=== PATIENT | male | born 1990 | race Two or more races ===

== ENCOUNTER 2025-03-24 17:59 | Emergency (ER) | payer OTHER, SELFPAY ==
[2025-03-24 17:59] VITALS: BMI 25.0
[2025-03-24 18:46] VITALS: BP 150/88; PULSE 76; RESP 18; TEMP 36.7; O2SAT 99
[2025-03-24 19:43] VITALS: BP 128/82; PULSE 59; RESP 16; TEMP 37.1; O2SAT 98
--- NOTE | 2025-03-24 19:51 | XR_ITS ---
Examination: CT brain head without contrast. 2-D sagittal coronal reconstructions Date and time of exam:March 24, 20252008 hrs. Indications: Injury to the head today followed by head pain dizziness CTDI: vol (mGy):51.2 DLP: (mGycm):1007 Technique: Multiple CT axial sections of the brain have been obtained, 5 mm slice thickness. Contrast has not been administered. 2-D sagittal, coronal reconstructions have been obtained Low dose protocols were performed. One or more of the following dose reduction techniques were used; automated exposure control, adjustment of the mA and/or KV according to patient size, use of iterative reconstruction technique. Findings: No significant ventricular enlargement. 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 No mass effect or midline shift Basal cisterns are not remarkable. Fourth ventricle is midline. Cranial vault intact. 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
--- NOTE | 2025-03-24 19:52 | PD.EDHEAD ---
ED Head Injury RME/HPI General Chief complaint: Head Injury Stated complaint: HIT IN HEAD WITH LADDER AT 1400, NO LOC, WORK COMP Time Seen by Provider: 03/24/25 19:50 Arrival date/time: 03/24/25 17:59 34M with no significant PMH presents to ED with head pain and some L eye blurry vision after he got hit in the head by a ladder at work today. Patient denies LOC, AMS, seizures, and N/V. Limitations: no limitations Related Data Previous Rx's ?Medication ?Instructions ?Recorded meloxicam 7.5 mg tablet 7.5 mg PO QDAY #10 tabs 07/27/23 Allergies Allergy/AdvReac Type Severity Reaction Status Date / Time No Known Allergies Allergy Verified 03/24/25 18:02 Review of Systems Review of Systems Systems Reviewed: All systems reviewed, normal except as documented Constitutional Constitutional: Reports system reviewed and no additional complaints, except as documented, Reports as per HPI, Denies fever(s) and Reports headache(s) (pain) Eyes Eyes: Reports as per HPI and Reports blurry vision ENT Ears, Nose, Mouth, and Throat: Denies disequilibrium and Reports headache(s) (pain) Cardiovascular Cardiovascular: Reports system reviewed and no additional complaints, except as documented, Denies chest pain and Denies dyspnea Respiratory Respiratory: Reports system reviewed and no additional complaints, except as documented, Denies cough and Denies dyspnea Gastrointestinal Gastrointestinal: Reports system reviewed and no additional complaints, except as documented, Denies abdominal pain, Denies nausea and Denies vomiting Neurologic Neurologic: Reports system reviewed and no additional complaints, except as documented, Denies confusion, Denies disequilibrium and Reports headache(s) (pain) Psychiatric Psychiatric: Denies confusion Past Medical History Social History SMOKING STATUS: Never smoker ED Exam General Limitations: Present no limitations General appearance: Present alert and in no apparent distress Head Head exam: Present atraumatic Eye Eye exam: Present normal appearance, PERRL and EOMI ENT ENT exam: Present normal exam, normal oropharynx and mucous membranes moist Neck Neck exam: Present normal inspection, full ROM and trachea midline Chest Chest inspection: Present normal inspection and symmetric chest wall rise Respiratory Respiratory exam: Present normal lung sounds bilaterally Cardiovascular Cardiovascular exam: Present regular rate, normal rhythm and normal heart sounds Abdominal Exam Abdominal exam: Present soft and normal bowel sounds Extremities Exam Extremities exam: Present normal inspection and full ROM Back Exam Back exam: Present normal inspection and full ROM Neurological Exam Neurological exam: Present alert, oriented X3 and CN II-XII intact Psychiatric Psychiatric exam: Present normal affect and normal mood Skin Skin exam: Present warm, dry, intact and normal color Course Quality Measures none Orders Category Date Time Status CT head/brain wo con Stat Exams 03/24/25 19:51 Completed Vital Signs Vital signs: Vital Signs Temperature 98.0 F 03/24/25 18:46 Pulse Rate 76 03/24/25 18:46 Respiratory Rate 18 03/24/25 18:46 Blood Pressure 150/88 H 03/24/25 18:46 Pulse Oximetry (%) 99 03/24/25 18:46 Oxygen Delivery Method Room Air 03/24/25 18:46 O2 at 99% on RA and WNLs Head Injury MDM Narrative MDM Narrative:: 34M with no significant PMH presents to ED with head pain and some L eye blurry vision after he got hit in the head by a ladder at work today. Patient denies LOC, AMS, seizures, and N/V. Physical exam reveals normal pupil response and EOM. No gross head trauma. Neck ROM intact. Gait normal. Speech normal. Patient is afebrile, calm, and alert. CT reveals possible old brainstem infarction. Upon reassessment, CN II-XII grossly intact. Neg pronator drift test. Strength equal bilaterally. Patient confirms his L eye blurry vision started after he was hit toda, not before. Patient states back in November, he may have had some L facial numbness, but it resolved and he did not get that evaluated. Patient does not want to wait for MRI in the morning. Patient AMA'd and states he will return in morning for MRI. Patient data External records reviewed:: [facility] previous records Clinical information provided by:: patient Social determinants that could affect healthcare access:: none Patient has the following chronic illnesses:: none How is presenting disease/condition affected by chronic disease/condition?: no chronic disease Evaluation data The following diagnostics were reviewed and interpreted by me:: radiology exam(s) Lab and/or radiology exams considered but not ordered:: ordered Interpretation Summary: above Medications / Prescriptions Medications or Prescriptions considered but not ordered:: not ordered Medication administrations:: n/a Consultations Consultation(s) initiated? (list below): No Diagnosis Differential diagnosis head injury: concussion without loss of consciousness, epidural hematoma, closed head injury, subarachnoid hematoma, postconcussion syndrome, subdural hematoma and other (abnormal brain CT) Most likely diagnosis given after review of the tests above:: [facility] and abnormal brain CT Admission Indicated Admission indicated?: not indicated Admission Request Was there a request for admission?: No Disposition Plan Disposition Plan: other (specify) (AMA'd) Discharge Plan Plan Patient Disposition: Left Against Medical Advice Prescriptions/Referrals Prescriptions/Med Rec: No Action meloxicam 7.5 mg tablet 7.5 mg PO QDAY Qty: 10 0RF Referrals: No Primary/Family,Physician [Primary Care Provider] - In 1 week Problem List Clinical Impression: Closed head injury, Abnormal brain CT Patient/Caregiver Discharge Instructions Print Language: Mosotho PA/COMPUTATIONAL CHEMIST Supervising Physician PA/COMPUTATIONAL CHEMIST Supervising Physician: Dr. Emanuel
--- NOTE | 2025-03-24 21:45 | PC.NURSE ---
PT LEAVING AMA AT THIS TIME, PT ENCOURAGED TO STAY, STATING I DONT WANT TO WAIT FOR THE MRI, I'LL BE BACK TOMORROW MORNING RISK EXPLAINED TO THE PATIENT, PATIENT VERBALIZED UNDERSTANDING AND VERBALIZED THAT COULD BE AN OUTCOME.
== END 2025-03-24 21:48 | disposition left against medical advice (07) ==
PROVIDERS: Emergency Provider Emergency Medicine
DX: S09.90XA Unspecified injury of head, initial encounter (principal); W22.8XXA Striking against or struck by other objects, initial encounter; Y92.89 Other specified places as the place of occurrence of the external cause; Y99.0 Civilian activity done for income or pay; R93.0 Abnormal findings on diagnostic imaging of skull and head, not elsewhere classified
CPT/HCPCS: 70450; 99283

== ENCOUNTER 2025-03-25 08:54 | Emergency (ER) | payer OTHER, SELFPAY ==
--- NOTE | 2025-03-25 | XR_ITS ---
Examination: MRI brain without intravenous contrast. Date and time of exam: March 25, 2025, 1141 hours INDICATIONS: Injury to the head yesterday, head pain followed by altered mental status Technique: Multiple axial and sagittal images of the brain obtained. Siemens high-resolution 1.5 Evelia short bore scanners utilized. Sagittal sections, T1-weighted, TR 500, TE 14, are performed. Axial sections proton-density and T2-weighted have been obtained. Inversion recovery axial images, TR 9, 260, TE 111, TI 2500. Diffusion weighted images, axial sections, TR 4800, TE 128, B value 1000 Axial sections, ADC map, TR 4800, TE 128 Findings: Enlargement of the sella turcica is not present. The optic chiasm and infundibular are not remarkable. Prepontine and interpeduncular cisterns are not enlarged. There is no localized enlargement of the medulla or willi. Fourth ventricle and cerebellar tonsils appear normal in position. No subacute area of hemorrhage density is seen. Mass in the cerebellopontine angle region is not evident. Globes symmetrical. Orbital musculature including medial lateral rectus muscles do not exhibit abnormality. Diffusion-weighted images demonstrate no focus of restricted diffusion. Increased white matter signal evident, multiple punctate foci increased signal in the white matter Mass effect upon the ventricular system is not identified. Impression: Negative for acute hemorrhage mass effect or midline shift No acute infarct Scattered punctate foci increased signal in the white matter, demyelinating disease pattern
[2025-03-25 09:08] VITALS: BP 157/77; PULSE 88; RESP 18; TEMP 36.9; O2SAT 100; BMI 25.1
--- NOTE | 2025-03-25 09:10 | PD.EDRME ---
Rapid Medical Screening Exam E Arrival date/time: 03/25/25 08:54 34-year-old male with no known medical history presents to the emergency room with a chief complaint of left-sided blurry vision, left-sided headache, dizziness, lightheadedness x 2 days. Patient was seen here in the emergency room and had an abnormal CT and was instructed to return to the emergency room today for an MRI. I have greeted and performed a focused initial assessment of this patient. A comprehensive ED assessment and evaluation of the patient, analysis of all test results, and completion of the medical decision making process will be conducted by additional ED providers. Chief Complaint: Head Injury Time Seen by Provider: 03/25/25 09:00 Vital signs: Vital Signs Temperature 98.5 F 03/25/25 09:08 Pulse Rate 88 03/25/25 09:08 Respiratory Rate 18 03/25/25 09:08 Blood Pressure 157/77 H 03/25/25 09:08 Pulse Oximetry (%) 100 03/25/25 09:08 Oxygen Delivery Method Room Air 03/25/25 09:08 Vital signs reviewed by provider: Yes
--- NOTE | 2025-04-08 07:02 | EDNOTE_ITS ---
ED Head Injury RME/HPI General Chief complaint: Head Injury Stated complaint: NEEDS HEAD/BRAIN MRI WAS SEEN YESTERDAY [employer] C Time Seen by Provider: 03/25/25 09:00 Source: patient Arrival date/time: 03/25/25 08:54 34-year-old male with no known medical history presents to the emergency room with a chief complaint of left-sided blurry vision, left-sided headache, dizziness, lightheadedness x 2 days. Patient was seen here in the emergency room and had an abnormal CT and was instructed to return to the emergency room today for an MRI. Mode of arrival: ambulatory Limitations: no limitations RME / HPI RME / HPI Narrative: 03/25/25 08:54 34-year-old male with no known medical history presents to the emergency room with a chief complaint of left-sided blurry vision, left-sided headache, dizziness, lightheadedness x 2 days. Patient was seen here in the emergency room and had an abnormal CT and was instructed to return to the emergency room today for an MRI. I have greeted and performed a focused initial assessment of this patient. A comprehensive ED assessment and evaluation of the patient, analysis of all test results, and completion of the medical decision making process will be conducted by additional ED providers. Related Data Previous Rx's ?Medication ?Instructions ?Recorded meloxicam 7.5 mg tablet 7.5 mg PO QDAY #10 tabs 02/10 baclofen 10 mg tablet 10 mg PO BID PRN muscle spas m #10 03/26/25 tabs tramadol 50 mg tablet 50 mg PO Q8H max 3 tabs per day #8 03/26/25 tabs Allergies Allergy/AdvReac Type Severity Reaction Status Date / Time No Known Allergies Allergy Verified 03/26/25 18:42 Review of Systems Review of Systems Systems Reviewed: All systems reviewed, normal except as documented Constitutional Constitutional: Reports system reviewed and no additional complaints, except as documented, Denies fatigue, Denies fever(s), Denies frequent falls, Reports headache(s) and Reports weakness Eyes Eyes: Reports system reviewed and no additional complaints, except as documented, Denies blurry vision, Denies change in vision and Denies loss of vision ENT Ears, Nose, Mouth, and Throat: Reports system reviewed and no additional complaints, except as documented, Denies abnormal hearing, Denies disequilibrium, Denies dizziness, Denies otalgia, Reports headache(s), Denies nasal congestion, Denies throat swelling and Denies vertigo Cardiovascular Cardiovascular: Reports system reviewed and no additional complaints, except as documented, Denies chest pain, Denies dyspnea, Denies dyspnea on exertion and Denies syncope Respiratory Respiratory: Reports system reviewed and no additional complaints, except as documented, Denies chest congestion, Denies cough, Denies dyspnea, Denies dyspnea on exertion and Denies wheezing Gastrointestinal Gastrointestinal: Reports system reviewed and no additional complaints, except as documented, Denies abdominal pain, Denies cramping, Denies nausea and Denies vomiting Genitourinary Genitourinary: Reports system reviewed and no additional complaints, except as documented, Denies dysuria and Denies hematuria Musculoskeletal Musculoskeletal: Reports system reviewed and no additional complaints, except as documented, Denies abnormal gait, Denies back pain, Denies numbness and Denies tingling Integumentary/Breasts Skin/Breast: Reports system reviewed and no additional complaints, except as documented and Denies wounds Neurologic Neurologic: Reports system reviewed and no additional complaints, except as documented, Denies abnormal gait, Denies abnormal hearing, Denies abnormal movements, Denies abnormal speech, Denies behavioral changes, Denies confusion, Denies convulsions, Denies disequilibrium, Denies dizziness, Denies frequent falls, Reports headache(s), Denies lack of coordination, Denies loss of vision, Denies memory loss, Denies numbness, Denies other visual disturbances, Denies paresthesias, Denies seizure-like activity, Denies sensory deficit, Denies syncope, Denies tingling, Denies tremor(s), Denies vertigo and Reports weakness Psychiatric Psychiatric: Reports system reviewed and no additional complaints, except as documented, Denies anxiety, Denies behavioral changes, Denies confusion, Denies depression, Denies memory loss, Denies paranoia, Denies suicidal ideation and Denies tactile hallucinations Endocrine Endocrine: Reports system reviewed and no additional complaints, except as documented and Denies fatigue Hematologic/Lymphatic Hematologic/Lymphatic: Reports system reviewed and no additional complaints, except as documented and Denies lymphadenopathy Allergic/Immunologic Allergic/Immunologic: Reports system reviewed and no additional complaints, except as documented, Denies throat swelling, Denies urticaria and Denies wheezing ED Exam General Limitations: Present no limitations General appearance: Present alert and in no apparent distress Head Head exam: Present atraumatic, normocephalic and normal inspection Expanded Head Exam Head exam physical: Absent laceration, abrasion, contusion, hematoma, raccoon eyes, Mendoza's sign, tenderness of temporal artery, CSF rhinorrhea or CSF otorrhea Eye Eye exam: Present normal appearance, PERRL and EOMI ENT ENT exam: Present normal exam, normal oropharynx and mucous membranes moist Neck Neck exam: Present normal inspection, full ROM and trachea midline Chest Chest inspection: Present normal inspection and symmetric chest wall rise Respiratory Respiratory exam: Present normal lung sounds bilaterally Cardiovascular Cardiovascular exam: Present regular rate, normal rhythm and normal heart sounds Abdominal Exam Abdominal exam: Present soft and normal bowel sounds Extremities Exam Extremities exam: Present normal inspection and full ROM Back Exam Back exam: Present normal inspection and full ROM Neurological Exam Neurological exam: Present alert, oriented X3, CN II-XII intact, normal gait and reflexes normal; Absent motor sensory deficit Expanded Neurological Exam Patient oriented to: Present person, place and time Speech: Present fluid speech Cranial nerves: Normal: EOM function (II, III, IV, ), facial sensation (V), f acial palsy (VII), spinal accessory function (XI) and tongue deviation (XII) Cerebellar function: Normal: finger to nose Cerebellar function: Present normal gait Motor strength - LUE: 5/5 Motor strength - RUE: 5/5 Motor strength - LLE: 5/5 Motor strength - RLE: 5/5 Coma scale eye opening: spontaneous Coma scale motor response: obeys commands Coma scale verbal response: oriented Coma scale total: 15 Psychiatric Psychiatric exam: Present normal affect and normal mood Skin Skin exam: Present warm, dry, intact and normal color Course Quality Measures none Orders Category Date Time Status MRI Screening NOW Care 03/25/25 09:10 Completed MR head/brain wo con Stat Exams 03/25/25 Completed Vital Signs Vital signs: Vital Signs Temperature 98.5 F 03/25/25 09:08 Pulse Rate 88 03/25/25 09:08 Respiratory Rate 18 03/25/25 09:08 Blood Pressure 157/77 H 03/25/25 09:08 Pulse Oximetry (%) 100 03/25/25 09:08 Oxygen Delivery Method Room Air 03/25/25 09:08 Head Injury MDM Narrative MDM Narrative:: 34-year-old male with no known medical history presents to the emergency room with a chief complaint of left-sided blurry vision, left-sided headache, dizziness, lightheadedness x 2 days. Patient was seen here in the emergency room and had an abnormal CT and was instructed to return to the emergency room today for an MRI. Patient is hemodynamically stable and in no apparent distress Physical examination shows a normal neurological exam. The patient is a GCS 15 he is alert and oriented x 3. The patient has a normal steady gait. Pupils are PERRLA EOMs are intact [id number] test was within normal limits. There is no facial droop there is no hyphema there is no Mendoza sign there is no evidence of any cerebrospinal fluid in the nose. The patient is alert and oriented and is able to tell me exactly what happened during the event. Patient was instructed to return to the emergency room today for an MRI. An MRI was completed and was negative for any acute hemorrhage mass effect or midline shift. There is no evidence of any acute infarct. There is some scattered punctate foci of increased signal in the white matter demyelinating disease pattern. The patient was educated to follow-up with a neurologist. The patient has a normal steady gait or reflexes and cranial nerves are within normal limits patient has +5 strength in his upper and lower extremities. The patient states that he is still having some dizziness and lightheadedness as well as some blurry vision. MRI was within normal limits. I discussed the case with my attending physician and the patient was discharged and educated to follow-up with his primary care provider have a referral to his neurologist and the patient was given strict return precautions to return to the emergency room for any evidence of worsening signs or symptoms Patient data External records reviewed:: [facility] previous records Clinical information provided by:: patient Social determinants that could affect healthcare access:: none Patient has the following chronic illnesses:: No chronic illness How is presenting disease/condition affected by chronic disease/condition?: no chronic disease Evaluation data The following diagnostics were reviewed and interpreted by me:: lab results and radiology exam(s) Lab and/or radiology exams considered but not ordered:: Labs and radiology exams considered and ordered Interpretation Summary: Brain MRI-Findings: Enlargement of the sella turcica is not present. The optic chiasm and infundibular are not remarkable. Prepontine and interpeduncular cisterns are not enlarged. There is no localized enlargement of the medulla or willi. Fourth ventricle and cerebellar tonsils appear normal in position. No subacute area of hemorrhage density is seen. Mass in the cerebellopontine angle region is not evident. Globes symmetrical. Orbital musculature including medial lateral rectus muscles do not exhibit abnormality. Diffusion-weighted images demonstrate no focus of restricted diffusion. Increased white matter signal evident, multiple punctate foci increased signal in the white matter Mass effect upon the ventricular system is not identified. Impression: Negative for acute hemorrhage mass effect or midline shift No acute infarct Scattered punctate foci increased signal in the white matter, demyelinating disease pattern Medications / Prescriptions Medications or Prescriptions considered but not ordered:: No medication given Medication administrations:: No medication given Consultations Consultation(s) initiated? (list below): No Diagnosis Differential diagnosis head injury: concussion without loss of consciousness, epidural hematoma, closed head injury, subarachnoid hematoma, subdural hematoma and concussion with loss of consciousness Most likely diagnosis given after review of the tests above:: Closed head injury Admission Indicated Admission indicated?: not indicated Admission Request Was there a request for admission?: No Disposition Plan Disposition Plan: Discharge Discharge Attestation Discharge Attestation: The patient and all family members were given an opportunity to ask questions and understood the discharge instructions. Discharge instructions specifically effects, indications for sooner follow up or return to the emergency department, and the expected course of current diagnosis. Patient condition: Stable Discharge Plan Plan Patient Disposition: HOME (Self Care) Discharge Disposition comment: Stable Prescriptions/Referrals Prescriptions/Med Rec: No Action meloxicam 7.5 mg tablet 7.5 mg PO QDAY Qty: 10 0RF tramadol 50 mg tablet 50 mg PO Q8H Qty: 8 0RF baclofen 10 mg tablet 10 mg PO BID PRN (Reason: muscle spasm) Qty: 10 0RF Referrals: No Primary/Family,Physician [Primary Care Provider] - In 1 week Problem List Clinical Impression: Closed head injury Patient/Caregiver Discharge Instructions Education Materials: ED Head Injury (Adult) Additional Instructions: Please follow-up with your primary care provider in the next 24 to 48 hours If your sinus symptoms continue a referral to a neurologist may be indicated For any evidence of worsening signs or symptoms return to the emergency room i mmediately Print Language: Occitan Stand Alone Forms: Luanne Award Info., Patient Portal Info Letter PA/[employer] Supervising Physician PA/YADIRA Supervising Physician: Dr. Gill
== END 2025-03-25 15:40 | disposition home or self-care (01) ==
PROVIDERS: Emergency Provider Family Medicine
DX: S09.90XA Unspecified injury of head, initial encounter (principal); X58.XXXA Exposure to other specified factors, initial encounter
CPT/HCPCS: 70551; 99284

== ENCOUNTER 2025-03-26 18:39 | Emergency (ER) | payer OTHER, SELFPAY ==
[2025-03-26 18:40] VITALS: BMI 22.5
[2025-03-26 19:24] VITALS: BP 130/80; PULSE 80; RESP 18; TEMP 36.7; O2SAT 99
--- NOTE | 2025-03-26 19:56 | XR_ITS ---
Examination: CT brain head without contrast. 2-D sagittal coronal reconstructions Date and time of exam:March 26, 2025, 2046 hrs. Indications: Patient fell off a ladder 3 days ago with injury to the head, head pain CTDI: vol (mGy):53.8 DLP: (mGycm):1087 Technique: Multiple CT axial sections of the brain have been obtained, 5 mm slice thickness. Contrast has not been administered. 2-D sagittal, coronal reconstructions have been obtained Low dose protocols were performed. One or more of the following dose reduction techniques were used; automated exposure control, adjustment of the mA and/or KV according to patient size, use of iterative reconstruction technique. Findings: No significant ventricular enlargement. Intra-axial or extra-axial hemorrhage density is not seen. No mass effect or midline shift Basal cisterns are not remarkable. Fourth ventricle is midline. Cranial vault intact. Impression: Negative for acute hemorrhage, mass effect or midline shift
--- NOTE | 2025-03-26 19:58 | XR_ITS ---
Examination: CT cervical spine without contrast 2-D sagittal reconstructions 2-D coronal reconstructions 3-D reconstructions. Exam date and time:March 26, 2024, 2048 hrs. Indications: Patient fell off a ladder today with injury to the neck, neck pain. CTDI:vol (mGy) 15.8 DLP: (mGycm) 167 Technique: Multiple 2 mm axial sections of the cervical spine have been obtained. The coronal and sagittal reconstructions have been obtained. 3-D reconstructions have been obtained. Low dose protocols were performed. One or more of the following dose reduction techniques were used; automated exposure control, adjustment of the mA and/or KV according to patient size, use of iterative reconstruction technique. Findings: Axial sections demonstrate intact base of the skull. C1 exhibit satisfactory relationship to the odontoid. No acute cervical vertebral body fracture seen. Alignment posterior spinous processes satisfactory. Impression: No acute cervical fracture.
--- NOTE | 2025-03-26 20:34 | PC.NURSE ---
Patient refused lab draw. Patient educated on importance of lab draw and getting CT scan with contrast, patient continue to refuse lab draw. Provider Durga made aware. Lab order and CT angio cancelled. mri tech aware.
[2025-03-26] MEDS: HYDROcodone/APAP 5/325 TABLET 1 TAB PO (21:38)
[2025-03-26] MEDS: ONDANSETRON ODT 4 MG TABRAP PO (21:38)
--- NOTE | 2025-03-26 23:12 | PD.EDHEAD ---
ED Head Injury RME/HPI General Chief complaint: Head Injury Stated complaint: HEAD PAIN S/P HIT WITH LADDER 3 DAYS AGO, SEEN YES Time Seen by Provider: 03/26/25 18:53 Source: patient Arrival date/time: 03/26/25 18:39 This is a case of 34-year-old male with no medical history came in in the emergency room due to headache and neck pain history of present illness started March 24, 2025 patient accidentally hit by a ladder on the neck sustaining a small contusion on the head CT scan was done here in the emergency room and was followed with MRI which everything were normal patient went back to March 25, 2025 with a headache also and was given pain medication patient states that for 2 days he has no headache until today he started to have headache again and neck pain thus patient decided to sought consult here in the emergency room patient denies any dizziness blurring of vision nausea vomiting or eye pain denies any numbness weakness tingling sensation or incontinence to urine or stool Limitations: no limitations Related Data Previous Rx's ?Medication ?Instructions ?Recorded meloxicam 7.5 mg tablet 7.5 mg PO QDAY #10 tabs 07/27/23 baclofen 10 mg tablet 10 mg PO BID PRN muscle spasm #10 03/26/25 tabs tramadol 50 mg tablet 50 mg PO Q8H max 3 tabs per day #8 03/26/25 tabs Allergies Allergy/AdvReac Type Severity Reaction Status Date / Time No Known Allergies Allergy Verified 03/26/25 18:42 Review of Systems Review of Systems Systems Reviewed: All systems reviewed, normal except as documented Constitutional Constitutional: Reports system reviewed and no additional complaints, except as documented, Reports as per HPI, Denies chills, Denies fever(s), Denies frequent falls, Reports headache(s) and Denies weakness Eyes Eyes: Reports system reviewed and no additional complaints, except as documented, Reports as per HPI, Denies blurry vision, Denies change in vision and Denies loss of vision ENT Ears, Nose, Mouth, and Throat: Denies abnormal hearing, Denies disequilibrium, Denies dizziness, Reports headache(s) and Denies vertigo Cardiovascular Cardiovascular: Reports system reviewed and no additional complaints, except as documented, Reports as per HPI and Denies syncope Respiratory Respiratory: Reports system reviewed and no additional complaints, except as documented and Reports as per HPI Gastrointestinal Gastrointestinal: Reports system reviewed and no additional complaints, except as documented and Reports as per HPI Musculoskeletal Musculoskeletal: Reports system reviewed and no additional complaints, except as documented, Reports as per HPI, Denies abnormal gait, Denies numbness and Denies tingling Neurologic Neurologic: Reports system reviewed and no additional complaints, except as documented, Reports as per HPI, Denies abnormal gait, Denies abnormal hearing, Denies abnormal movements, Denies abnormal speech, Denies behavioral changes, Denies burning sensations, Denies confusion, Denies convulsions, Denies disequilibrium, Denies dizziness, Denies localized weakness, Denies frequent falls, Reports headache(s), Denies lack of coordination, Denies loss of vision, Denies memory loss, Denies numbness, Denies other visual disturbances, Denies paresthesias, Denies radicular pain, Denies restless legs, Denies seizure-like activity, Denies sensory deficit, Denies syncope, Denies tingling, Denies tremor(s), Denies vertigo and Denies weakness Psychiatric Psychiatric: Denies behavioral changes, Denies confusion and Denies memory loss Past Medical History Social History SMOKING STATUS: Never smoker ED Exam General Limitations: Present no limitations General appearance: Present alert, in no apparent distress and other (Patient is awake alert oriented not in distress nontoxic looking well-hydrated well-nourished) Head Head exam: Present atraumatic, normocephalic, normal inspection and other (Contusion no hematoma) Eye Eye exam: Present normal appearance, PERRL, EOMI and other (PERRL EOM intact normal conjunctiva no papilledema no hyphema) ENT ENT exam: Present normal exam, normal oropharynx, mucous membranes moist and other (Normal HEENT exam) Neck Neck exam: Present normal inspection, full ROM, trachea midline and other (Very mild tenderness on the posterior cervical area but no crepitation no deformity no paraspinal no paravertebral tenderness ROM intact neurovascular intact negative for meningeal sign); Absent tenderness, meningismus, lymphadenopathy or thyromegaly Chest Chest inspection: Present normal inspection and symmetric chest wall rise; Absent tenderness Respiratory Respiratory exam: Present normal lung sounds bilaterally; Absent respiratory distress, wheezes, stridor, accessory muscle use or prolonged expiratory phase Cardiovascular Cardiovascular exam: Present regular rate, normal rhythm and normal heart sounds; Absent bradycardia, tachycardia, irregular rhythm, systolic murmur or diastolic murmur Abdominal Exam Abdominal exam: Present soft and normal bowel sounds; Absent distention, tenderness, guarding, rebound, rigidity, diminished bowel sounds, hyperactive bowel sounds or hypoactive bowel sounds Extremities Exam Extremities exam: Present normal inspection and full ROM Back Exam Back exam: Present normal inspection and full ROM Neurological Exam Neurological exam: Present alert, oriented X3, CN II-XII intact, normal gait, reflexes normal and other (Awake alert oriented x 4 no focal deficit GCS 15/15 steady gait motor or sensory reflex in all extremities were normal negative Babinski memory intact no slurring speech no facial droop CN II to XII is); Absent motor sensory deficit Psychiatric Psychiatric exam: Present normal affect and normal mood Skin Skin exam: Present warm, dry, intact and normal color Course Quality Measures none Orders Category Date Time Status CT Screening NOW Care 03/26/25 19:[address] cervical spine wo con Stat Exams 03/26/25 19:[address] head/brain wo con Stat Exams 03/26/25 19:56 Completed HYDROcodone*/APAP 5/325 [[place] 5/325] Med 03/26/25 21:27 Discontinued 1 tab PO X1 ONE Ondansetron Odt [Zofran Odt] Med 03/26/25 21:27 Discontinued 4 mg PO X1 ONE Vital Signs Vital signs: Vital Signs Temperature 98.1 F 03/26/25 19:24 Pulse Rate 80 03/26/25 19:24 Respiratory Rate 18 03/26/25 19:24 Blood Pressure 130/80 03/26/25 19:24 Pulse Oximetry (%) 99 03/26/25 19:24 Oxygen Delivery Method Room Air 03/26/25 19:24 Patient is afebrile nontachycardic nontachypneic BP stable not hypoxic oxygen saturation is 99% in room air Head Injury MDM Narrative MDM Narrative:: This is a case of 34-year-old male with no medical history came in in the emergency room due to headache and neck pain history of present illness started March 24, 2025 patient accidentally hit by a ladder on the neck sustaining a small contusion on the head CT scan was done here in the emergency room and was followed with MRI which everything were normal patient went back to March 25, 2025 with a headache also and was given pain medication patient states that for 2 days he has no headache until today he started to have headache again and neck pain thus patient decided to sought consult here in the emergency room patient denies any dizziness blurring of vision nausea vomiting or eye pain denies any numbness weakness tingling sensation or incontinence to urine or stool physical examination patient is awake alert oriented not in distress nontoxic looking PERRL EOM intact normal conjunctiva no papilledema no hyphema HEENT exam is normal neck exam noted mild tenderness on the cervical area no crepitation no deformity no redness no cellulitis no swelling no paraspinal tenderness no paravertebral tenderness ROM intact neurovascular intact neurological exam is also normal awake alert oriented x 4 no focal deficit GCS 15/15 steady gait memory intact no slurring speech no facial droop motor or sensory reflex were all normal I discussed with Dr. Aleman patient condition history and physical examination ordered to perform again CT scan of the head and cervical area and if normal discharge patient as postconcussion syndrome CT scan and cervical and head were normal patient was given [place] and Zofran which patient condition improved and resolved I discussed with the patient regarding his treatment plan and regarding postconcussion syndrome she needs to see a neurologist for further evaluation and treatment he was given tramadol for pain and baclofen for muscle spasm he was advised to return in the emergency room for any persistent worsening or any emergent concern patient understood verbally the discharge instruction Patient was discharged with comfortable condition walking with stable gait. Patient verbalized no further complains explained diagnosis and answered patient question. Patient is comfortable with the proposed management plan including the need to follow up with his/her primary care physician and any specialist if applicable Discussed patient for any urgent condition or worsening sx, He/She needed to go to emergency room immediately or call 911. Patient acknowledge the responsibility to follow up as instructed and to monitor her/his symptoms. For any persistence of the symptoms for more than 3-5 days return precaution advised. Discussed the result of the test and was given printed discharge instruction Patient data External records reviewed:: [facility] previous records Clinical information provided by:: patient Social determinants that could affect healthcare access:: none Patient has the following chronic illnesses:: None How is presenting disease/condition affected by chronic disease/condition?: no chronic disease Evaluation data The following diagnostics were reviewed and interpreted by me:: radiology exam(s) Lab and/or radiology exams considered but not ordered:: Reviewed Interpretation Summary: Reviewed Medications / Prescriptions Medications or Prescriptions considered but not ordered:: Given Medication administrations:: Medication Administration History Discontinued Medications Hydrocodone Bitart/Acetaminophen (Hydrocodone/Apap 5/325 Tablet) 1 tab PO X1 ONE Stop: 03/26/25 21:28 Last Admin: 03/26/25 21:38 Dose: 1 tab Documented By: GAYLE Ondansetron HCl (Ondansetron Odt 4 Mg Tabrap) 4 mg PO X1 ONE; Protocol Stop: 03/26/25 21:28 Last Admin: 03/26/25 21:38 Dose: 4 mg Documented By: GAYLE Given Consultations Consultation(s) initiated? (list below): Yes Consultation #1 (Physician, Specialty, Details): Dr. Aleman do CT scan of the head and cervical if normal discharge patient Diagnosis Differential diagnosis head injury: concussion without loss of consciousness, closed head injury and postconcussion syndrome Most likely diagnosis given after review of the tests above:: Postconcussion syndrome Admission Indicated Admission indicated?: not indicated Explain why admission is indicated or not indicated:: Not indicated Admission Request Was there a request for admission?: No Admission Attestation Admission request attestation: Not indicated Disposition Plan Disposition Plan: Discharge Discharge Attestation Discharge Attestation: The patient and all family members were given an opportunity to ask questions and understood the discharge instructions. Discharge instructions specifically effects, indications for sooner follow up or return to the emergency department, and the expected course of current diagnosis. Patient condition: Stable Discharge Plan Plan Patient Disposition: HOME (Self Care) Patient condition on transfer: Stable Prescriptions/Referrals Prescriptions/Med Rec: New tramadol 50 mg tablet 50 mg PO Q8H Qty: 8 0RF baclofen 10 mg tablet 10 mg PO BID PRN (Reason: muscle spasm) Qty: 10 0RF No Action meloxicam 7.5 mg tablet 7.5 mg PO QDAY Qty: 10 0RF Referrals: No Primary/Family,Physician [Primary Care Provider] - In 1 week Problem List Clinical Impression: Headache, Post-concussion syndrome, Cervical sprain Patient/Caregiver Discharge Instructions Education Materials: Coping with Concussion, Self-Care for Headaches, ED Neck Sprain or Strain Additional Instructions: Follow-up with your primary care physician in 2 days for reevaluation and to be referred to a neurologist for further evaluation and treatment of postconcussion syndrome worsening symptoms or any emergent concerns such as headache nausea vomiting dizziness blurring of vision numbness weakness tingling sensation unstable gait return to the emergency room immediately or call 911 take your medication as directed do not take [place] and baclofen at the same time ice pack as needed for pain is advised Print Language: [place] Stand Alone Forms: Luanne Award Info., Patient Portal Info Letter PA/MOLD TOOLING TECHNICIAN Supervising Physician PA/MOLD TOOLING TECHNICIAN Supervising Physician: Dr. Aleman
== END 2025-03-26 23:20 | disposition home or self-care (01) ==
PROVIDERS: Emergency Provider Emergency Medicine
DX: S13.9XXD Sprain of joints and ligaments of unspecified parts of neck, subsequent encounter (principal); S00.93XD Contusion of unspecified part of head, subsequent encounter; W22.8XXD Striking against or struck by other objects, subsequent encounter; F07.81 Postconcussional syndrome
CPT/HCPCS: 70450; 72125; 80053; 85025; 99284; Q0162; A9270

== ENCOUNTER 2025-04-09 19:46 | Emergency (ER) | payer OTHER, SELFPAY ==
[2025-04-09 19:49] VITALS: BMI 23.1
[2025-04-09 19:59] VITALS: BP 121/72; PULSE 68; RESP 16; TEMP 37.1; O2SAT 99
--- NOTE | 2025-04-09 20:12 | PD.EDHA ---
ED Headache RME/HPI General Chief Complaint: General Adult/Misc Complain Stated Complaint: NECK PAIN, HEAD PAIN, Time Seen by Provider: 04/09/25 19:51 Arrival date/time: 04/09/25 19:46 This is a case of 34-year-old male with no medical history came in in the emergency room due to on and off headache radiating to the neck area history of present illness started March 24, 2025 when the patient had head injury when a ladder fell on the back of his neck patient was seen here multiple times on the same day where CT scan and MRI were performed patient MRI were normal CT scan of the head and cervical was also normal I seen this patient in March 25, 2025 where neurological exam is normal neck exam is normal and was discharged as postconcussion syndrome and cervical spine patient was given medication patient states that the pain improved and resolved but recurrence of the pain today thus patient decided to sought consult here in the emergency room no blurring of vision no injury or no trauma no numbness no weakness or no tingling sensation patient denies any mid back or lower back pain at the time of exam patient refused any imaging at the time of exam patient states that he just wanted pain medication and he will see his primary care physician next week to be referred to neurologist Limitations: no limitations Related Data Previous Rx's ?Medication ?Instructions ?Recorded meloxicam 7.5 mg tablet 7.5 mg PO QDAY #10 tabs 07/27/23 baclofen 10 mg tablet 10 mg PO BID PRN muscle spasm #10 03/26/25 tabs tramadol 50 mg tablet 50 mg PO Q8H max 3 tabs per day #8 03/26/25 tabs wbxkamwkqo-haukcax-ermehdwq 50 1 tab PO Q6H PRN pain #10 tabs 04/09/25 mg-325 mg-40 mg tablet ondansetron 4 mg disintegrating 4 mg PO Q8H PRN nausea and 04/09/25 tablet vomiting #10 tabs Allergies Allergy/AdvReac Type Severity Reaction Status Date / Time No Known Allergies Allergy Verified 04/09/25 19:48 Review of Systems Review of Systems Systems Reviewed: All systems reviewed, normal except as documented Constitutional Constitutional: Reports system reviewed and no additional complaints, except as documented, Reports as per HPI, Denies frequent falls, Reports headache(s) and Denies weakness Eyes Eyes: Denies loss of vision ENT Ears, Nose, Mouth, and Throat: Denies abnormal hearing, Denies disequilibrium, Denies dizziness, Reports headache(s) and Denies vertigo Cardiovascular Cardiovascular: Reports system reviewed and no additional complaints, except as documented, Reports as per HPI and Denies syncope Respiratory Respiratory: Reports system reviewed and no additional complaints, except as documented and Reports as per HPI Gastrointestinal Gastrointestinal: Reports system reviewed and no additional complaints, except as documented and Reports as per HPI Genitourinary Genitourinary: Reports system reviewed and no additional complaints, except as documented and Reports as per HPI Musculoskeletal Musculoskeletal: Reports system reviewed and no additional complaints, except as documented, Reports as per HPI, Denies abnormal gait, Denies numbness and Denies tingling Neurologic Neurologic: Reports system reviewed and no additional complaints, except as documented, Reports as per HPI, Denies abnormal gait, Denies abnormal hearing, Denies abnormal movements, Denies abnormal speech, Denies behavioral changes, Denies burning sensations, Denies confusion, Denies convulsions, Denies disequilibrium, Denies dizziness, Denies localized weakness, Denies frequent falls, Reports headache(s), Denies lack of coordination, Denies loss of vision, Denies memory loss, Denies numbness, Denies other visual disturbances, Denies paresthesias, Denies radicular pain, Denies restless legs, Denies seizure-like activity, Denies sensory deficit, Denies syncope, Denies tingling, Denies tremor(s), Denies vertigo and Denies weakness Psychiatric Psychiatric: Denies behavioral changes, Denies confusion and Denies memory loss Past Medical History Social History SMOKING STATUS: Never smoker ED Exam General Limitations: Present no limitations General appearance: Present alert, in no apparent distress and other (Patient is awake alert oriented not in distress nontoxic looking well-hydrated well-nourished) Head Head exam: Present atraumatic, normocephalic and normal inspection Eye Eye exam: Present normal appearance, PERRL, EOMI and other (PERRL EOM intact normal conjunctiva no papilledema no hyphema) ENT ENT exam: Present normal exam, normal oropharynx, mucous membranes moist and other (HEENT exam is normal and unremarkable) Neck Neck exam: Present normal inspection, full ROM, trachea midline and other (Negative for meningeal signs no tenderness no crepitation no deformity no redness no swelling no paraspinal no paravertebral tenderness ROM intact neurovascular intact); Absent tenderness, meningismus, lymphadenopathy or thyromegaly Chest Chest inspection: Present normal inspection and symmetric chest wall rise; Absent tenderness, rash or abscess Respiratory Respiratory exam: Present normal lung sounds bilaterally; Absent respiratory distress, wheezes, stridor, accessory muscle use or prolonged expiratory phase Cardiovascular Cardiovascular exam: Present regular rate, normal rhythm and normal heart sounds; Absent bradycardia, tachycardia, irregular rhythm, systolic murmur or diastolic murmur Abdominal Exam Abdominal exam: Present soft and normal bowel sounds; Absent distention, tenderness, guarding, rebound, rigidity, diminished bowel sounds, hyperactive bowel sounds, hypoactive bowel sounds or organomegaly Extremities Exam Extremities exam: Present normal inspection and full ROM Back Exam Back exam: Present normal inspection and full ROM; Absent tenderness, CVA tenderness (R), CVA tenderness (L), muscle spasm, paraspinal tenderness, vertebral tenderness, sciatic notch tenderness (L), straight leg raise (R) or straight leg raise (L) Neurological Exam Neurological exam: Present alert, oriented X3, CN II-XII intact, normal gait, reflexes normal and other (Awake alert oriented x 4 no focal deficit GCS 15/15 steady gait no slurring speech no facial droop CN II to XII is normal motor or sensory reflexes were normal in all extremities negative Babinski); Absent motor sensory deficit Psychiatric Psychiatric exam: Present normal affect and normal mood Skin Skin exam: Present warm, dry, intact and normal color Course Quality Measures none Orders Category Date Time Status HYDROcodone*/APAP 5/325 [[place] 5/325] Med 04/09/25 20:07 Discontinued 1 tab PO X1 ONE Ondansetron Odt [Zofran Odt] Med 04/09/25 20:07 Discontinued 4 mg PO X1 ONE Vital Signs Vital signs: Vital Signs Temperature 98.8 F 04/09/25 19:59 Pulse Rate 68 04/09/25 19:59 Respiratory Rate 16 04/09/25 19:59 Blood Pressure 121/72 04/09/25 19:59 Pulse Oximetry (%) 99 04/09/25 19:59 Oxygen Delivery Method Room Air 04/09/25 19:59 Oxygen saturation is 99% in room air Headache MDM Narrative MDM Narrative:: This is a case of 34-year-old male with no medical history came in in the emergency room due to on and off headache radiating to the neck area history of present illness started March 24, 2025 when the patient had head injury when a ladder fell on the back of his neck patient was seen here multiple times on the same day where CT scan and MRI were performed patient MRI were normal CT scan of the head and cervical was also normal I seen this patient in March 25, 2025 where neurological exam is normal neck exam is normal and was discharged as postconcussion syndrome and cervical spine patient was given medication patient states that the pain improved and resolved but recurrence of the pain today thus patient decided to sought consult here in the emergency room no blurring of vision no injury or no trauma no numbness no weakness or no tingling sensation patient denies any mid back or lower back pain at the time of exam patient refused any imaging at the time of exam patient states that he just wanted pain medication and he will see his primary care physician next week to be referred to neurologist physical examination patient is awake alert oriented not in distress nontoxic looking well-hydrated well-nourished PERRL EOM intact normal conjunctiva negative for meningeal sign neck mid back and lower back pain were normal ROM intact neurovascular intact neuroexam were also normal awake alert oriented x 4 no focal deficit GCS 15/15 steady gait memory intact no focal deficit no slurring of speech no facial droop CN II to XII is normal motor or sensory reflex in all extremities are is normal negative for Babinski patient was given [place] and Zofran which improved and resolve the pain patient was discharged stable with stable gait stable vital signs patient will follow-up with PCP as scheduled and to be referred to a neurologist for further evaluation and treatment of postconcussion syndrome for any worsening symptoms patient informed to return in the emergency room immediately or call [phone] Patient was discharged with comfortable condition walking with stable gait. Patient verbalized no further complains explained diagnosis and answered patient question. Patient is comfortable with the proposed management plan including the need to follow up with his/her primary care physician and any specialist if applicable Discussed patient for any urgent condition or worsening sx, He/She needed to go to emergency room immediately or call 911. Patient acknowledge the responsibility to follow up as instructed and to monitor her/his symptoms. For any persistence of the symptoms for more than 3-5 days return precaution advised. Discussed the result of the test and was given printed discharge instruction Patient data External records reviewed:: [facility] previous records Clinical information provided by:: patient Social determinants that could affect healthcare access:: none Patient has the following chronic illnesses:: None How is presenting disease/condition affected by chronic disease/condition?: no chronic disease Evaluation data The following diagnostics were reviewed and interpreted by me:: other (specify) Lab and/or radiology exams considered but not ordered:: None Interpretation Summary: None Medications / Prescriptions Medications or Prescriptions considered but not ordered:: Given Medication administrations:: Medication Administration History Discontinued Medications Hydrocodone Bitart/Acetaminophen (Hydrocodone/Apap 5/325 Tablet) 1 tab PO X1 ONE Stop: 04/09/25 20:08 Ondansetron HCl (Ondansetron Odt 4 Mg Tabrap) 4 mg PO X1 ONE; Protocol Stop: 04/09/25 20:08 Given Consultations Consultation(s) initiated? (list below): No Diagnosis Differential diagnosis headache: migraine, tension headache, headache, sinusitis and postconcussion syndrome Most likely diagnosis given after review of the tests above:: Postconcussion syndrome headache Admission Indicated Admission indicated?: not indicated Explain why admission is indicated or not indicated:: Not indicated Admission Request Was there a request for admission?: No Admission Attestation Admission request attestation: Not indicated Disposition Plan Disposition Plan: Discharge Discharge Attestation Discharge Attestation: The patient and all family members were given an opportunity to ask questions and understood the discharge instructions. Discharge instructions specifically effects, indications for sooner follow up or return to the emergency department, and the expected course of current diagnosis. Patient condition: Stable Discharge Plan Plan Patient Disposition: HOME (Self Care) Patient condition on transfer: Stable Prescriptions/Referrals Prescriptions/Med Rec: New hvkmdvqbje-urvpdec-flhuxvme 50-325-40 mg tablet 1 tab PO Q6H PRN (Reason: pain) Qty: 10 0RF ondansetron 4 mg tablet,disintegrating 4 mg PO Q8H PRN (Reason: nausea and vomiting) Qty: 10 0RF No Action meloxicam 7.5 mg tablet 7.5 mg PO QDAY Qty: 10 0RF tramadol 50 mg tablet 50 mg PO Q8H Qty: 8 0RF baclofen 10 mg tablet 10 mg PO BID PRN (Reason: muscle spasm) Qty: 10 0RF Problem List Clinical Impression: Headache, Post-concussion syndrome Patient/Caregiver Discharge Instructions Education Materials: Coping with Concussion, Self-Care for Headaches Additional Instructions: Follow-up with your primary care physician in 2 days for reevaluation and to be referred to neurologist for further evaluation and treatment of your headache postconcussion syndrome recurrence persistent worsening symptoms or any emergent concerns such as headache nausea vomiting dizziness blurring of vision numbness weakness tingling sensation unsteady gait etc. return to the emergency room immediately or call 911 take your medication as directed keep hydrated Print Language: Tajik Stand Alone Forms: Luanne Award Info., Patient Portal Info Letter PA/SALES APPLICATIONS ENGINEER Supervising Physician PA/SALES APPLICATIONS ENGINEER Supervising Physician: Dr. caldera
[2025-04-09] MEDS: ONDANSETRON ODT 4 MG TABRAP PO (20:19)
[2025-04-09] MEDS: HYDROcodone/APAP 5/325 TABLET 1 TAB PO (20:19)
== END 2025-04-09 20:28 | disposition home or self-care (01) ==
PROVIDERS: Emergency Provider Family Medicine
DX: R51.9 Headache, unspecified (principal); F07.81 Postconcussional syndrome; S09.90XS Unspecified injury of head, sequela; W11.XXXS Fall on and from ladder, sequela
CPT/HCPCS: 99283; Q0162; A9270

== ENCOUNTER 2025-06-03 08:36 | Emergency (ER) | payer OTHER, SELFPAY ==
[2025-06-03 08:38] VITALS: BMI 23.7
[2025-06-03 08:49] VITALS: BP 122/76; PULSE 63; RESP 18; TEMP 37.1; O2SAT 99
--- NOTE | 2025-06-03 08:55 | XR_ITS ---
EXAMINATION: Cervical spine 3 views TECHNIQUE: AP, lateral, coned AP odontoid cervical spine 3 views Date and time: June 03, 2025, 0906 hours INDICATIONS: Injury to the neck 2 months ago, neck pain. FINDINGS: Satisfactory alignment cervical vertebral bodies. No cervical fracture. Intact odontoid. No significant cervical disc narrowing IMPRESSION: No cervical fracture
[2025-06-03] MEDS: KETOROLAC INJ 60 MG/2 ML VIAL 30 MG IM (09:07)
--- NOTE | 2025-06-03 09:08 | PD.EDNECK ---
ED Neck Injury Pain RME/HPI General Chief Complaint: Neck Pain/Injury Stated Complaint: NECK PAIN POST PT Time Seen by Provider: 06/03/25 08:40 Source: patient Arrival date/time: 06/03/25 08:36 34-year-old male with no known medical history presents to the emergency room with a chief complaint of neck pain after physical therapy appointment yesterday afternoon Mode of arrival: ambulatory Limitations: no limitations Related Data Previous Rx's ?Medication ?Instructions ?Recorded meloxicam 7.5 mg tablet 7.5 mg PO QDAY #10 tabs 07/27/23 baclofen 10 mg tablet 10 mg PO BID PRN muscle spasm #10 03/26/25 tabs tramadol 50 mg tablet 50 mg PO Q8H max 3 tabs per day #8 03/26/25 tabs zvjlkfmjvu-iickita-nzqvlhby 50 1 tab PO Q6H PRN pain #10 tabs 04/09/25 mg-325 mg-40 mg tablet ondansetron 4 mg disintegrating 4 mg PO Q8H PRN nausea and 04/09/25 tablet vomiting #10 tabs Allergies Allergy/AdvReac Type Severity Reaction Status Date / Time No Known Allergies Allergy Verified 06/03/25 08:38 Review of Systems Review of Systems Systems Reviewed: All systems reviewed, normal except as documented Constitutional Constitutional: Reports system reviewed and no additional complaints, except as documented, Denies fatigue, Denies fever(s), Denies headache(s) and Denies weakness Eyes Eyes: Reports system reviewed and no additional complaints, except as documented, Denies blurry vision and Denies change in vision ENT Ears, Nose, Mouth, and Throat: Reports system reviewed and no additional complaints, except as documented, Denies otalgia, Denies headache(s), Denies nasal congestion, Reports neck pain, Denies throat swelling and Denies vertigo Cardiovascular Cardiovascular: Reports system reviewed and no additional complaints, except as documented, Denies chest pain, Denies dyspnea and Denies dyspnea on exertion Respiratory Respiratory: Reports system reviewed and no additional complaints, except as documented, Denies chest congestion, Denies cough, Denies dyspnea, Denies dyspnea on exertion and Denies wheezing Gastrointestinal Gastrointestinal: Reports system reviewed and no additional complaints, except as documented, Denies abdominal pain, Denies cramping, Denies nausea and Denies vomiting Genitourinary Genitourinary: Reports system reviewed and no additional complaints, except as documented, Denies dysuria and Denies hematuria Musculoskeletal Musculoskeletal: Reports system reviewed and no additional complaints, except as documented, Denies back pain and Reports neck pain Integumentary/Breasts Skin/Breast: Reports system reviewed and no additional complaints, except as documented and Denies wounds Neurologic Neurologic: Reports system reviewed and no additional complaints, except as documented, Denies confusion, Denies headache(s), Denies lack of coordination, Denies vertigo and Denies weakness Psychiatric Psychiatric: Reports system reviewed and no additional complaints, except as documented, Denies anxiety, Denies confusion, Denies depression, Denies paranoia, Denies suicidal ideation and Denies tactile hallucinations Endocrine Endocrine: Reports system reviewed and no additional complaints, except as documented and Denies fatigue Hematologic/Lymphatic Hematologic/Lymphatic: Reports system reviewed and no additional complaints, except as documented and Denies lymphadenopathy Allergic/Immunologic Allergic/Immunologic: Reports system reviewed and no additional complaints, except as documented, Denies throat swelling, Denies urticaria and Denies wheezing Past Medical History Social History SMOKING STATUS: Never smoker ED Exam General Limitations: Present no limitations General appearance: Present alert and in no apparent distress Head Head exam: Present atraumatic, normocephalic and normal inspection Eye Eye exam: Present normal appearance, PERRL and EOMI ENT ENT exam: Present normal exam, normal oropharynx and mucous membranes moist Neck Neck exam: Present normal inspection, full ROM, trachea midline and tenderness Chest Chest inspection: Present normal inspection and symmetric chest wall rise Respiratory Respiratory exam: Present normal lung sounds bilaterally Cardiovascular Cardiovascular exam: Present regular rate, normal rhythm and normal heart sounds Abdominal Exam Abdominal exam: Present soft and normal bowel sounds Extremities Exam Extremities exam: Present normal inspection and full ROM Back Exam Back exam: Present normal inspection and full ROM Neurological Exam Neurological exam: Present alert, oriented X3 and CN II-XII intact Psychiatric Psychiatric exam: Present normal affect and normal mood Skin Skin exam: Present warm, dry, intact and normal color Course Quality Measures none Orders Category Date Time Status XR cervical spine 2-3V Stat Exams 06/03/25 08:55 Completed Ketorolac Inj [Toradol Inj] Med 06/03/25 08:55 Discontinued 30 mg IM X1 ONE Vital Signs Vital signs: Vital Signs Temperature 98.7 F 06/03/25 08:49 Pulse Rate 63 06/03/25 08:49 Respiratory Rate 18 06/03/25 08:49 Blood Pressure 122/76 06/03/25 08:49 Pulse Oximetry (%) 99 06/03/25 08:49 Oxygen Delivery Method Room Air 06/03/25 08:49 Neck Pain MDM Narrative MDM Narrative:: 34-year-old male with no known medical history presents to the emergency room with a chief complaint of neck pain after physical therapy appointment yesterday afternoon Patient is hemodynamically stable and in no apparent distress Physical examination shows tenderness and pain with palpation of the cervical area the patient's spine. The pain radiates down his neck. X-rays of his cervical spine were negative for any acute fracture or dislocation Patient was discharged and educated to follow-up with primary care provider in the next 24 to 48 hours and return to the emergency room for any evidence of worsening signs or symptoms Patient data External records reviewed:: [facility] previous records Clinical information provided by:: patient Social determinants that could affect healthcare access:: none Patient has the following chronic illnesses:: No chronic illness How is presenting disease/condition affected by chronic disease/condition?: no chronic disease Evaluation data The following diagnostics were reviewed and interpreted by me:: lab results and radiology exam(s) Lab and/or radiology exams considered but not ordered:: Labs and radiology exams considered and ordered Interpretation Summary: X-ray cervical neck-FINDINGS: Satisfactory alignment cervical vertebral bodies. No cervical fracture. Intact odontoid. No significant cervical disc narrowing IMPRESSION: No cervical fracture Medications / Prescriptions Medications or Prescriptions considered but not ordered:: Medication given Medication administrations:: Medication Administration History Discontinued Medications Ketorolac Tromethamine (Ketorolac Inj 60 Mg/2 Ml Vial) 30 mg IM X1 ONE Stop: 06/03/25 08:56 Last Admin: 06/03/25 09:07 Dose: 30 mg Documented By: VG Medication given Consultations Consultation(s) initiated? (list below): No Diagnosis Neck Differential Diagnosis: disc disorder of cervical region and strain of neck muscle Most likely diagnosis given after review of the tests above:: Strain of neck muscle Admission Indicated Admission indicated?: not indicated Admission Request Was there a request for admission?: No Disposition Plan Disposition Plan: Discharge Discharge Attestation Discharge Attestation: The patient and all family members were given an opportunity to ask questions and understood the discharge instructions. Discharge instructions specifically effects, indications for sooner follow up or return to the emergency department, and the expected course of current diagnosis. Patient condition: Stable Discharge Plan Plan Patient Disposition: HOME (Self Care) Discharge Disposition comment: Stable Prescriptions/Referrals Prescriptions/Med Rec: No Action meloxicam 7.5 mg tablet 7.5 mg PO QDAY Qty: 10 0RF tramadol 50 mg tablet 50 mg PO Q8H Qty: 8 0RF baclofen 10 mg tablet 10 mg PO BID PRN (Reason: muscle spasm) Qty: 10 0RF blvkwacuag-ashpzoh-zkikjlip 50-325-40 mg tablet 1 tab PO Q6H PRN (Reason: pain) Qty: 10 0RF ondansetron 4 mg tablet,disintegrating 4 mg PO Q8H PRN (Reason: nausea and vomiting) Qty: 10 0RF Referrals: No Primary/Family,Physician [Primary Care Provider] - In 1 week Problem List Clinical Impression: Strain of neck muscle Patient/Caregiver Discharge Instructions Education Materials: ED Neck Sprain or Strain Additional Instructions: Please follow-up with your primary care provider in the next 24 to 48 hours X-rays of your neck were completed and were negative for any acute findings For any evidence of worsening signs or symptoms return to the emergency room immediately Print Language: Iraqi Stand Alone Forms: Luanne Award Info., Work/School Release, Patient Portal Info Letter
== END 2025-06-03 09:51 | disposition home or self-care (01) ==
PROVIDERS: Emergency Provider Nurse Practitioner Family
DX: S16.1XXA Strain of muscle, fascia and tendon at neck level, initial encounter (principal); X50.0XXA Overexertion from strenuous movement or load, initial encounter
CPT/HCPCS: 72040; 96372; 99283; J1885